=== PATIENT | male | born 2000 | race Caucasian/White ===

== ENCOUNTER 2021-03-12 10:37 | Emergency (ER) | payer OTHER ==
[2021-03-12 10:51] VITALS: BP 137/76; PULSE 88; TEMP 98.6; BMI 22.8
[2021-03-12] MEDS ORDERED: IBUPROFEN 600 MG TABLET (FP) PO ONE ×2 (12:08→12:27)
== END 2021-03-12 12:49 | disposition home or self-care (01) ==
LOC: JERFT 10:37
DX: M25.562 Pain in left knee (principal); V43.52XA Car driver injured in collision with other type car in traffic accident, initial encounter
CPT/HCPCS: 73562-TC-LT-FY; 99283-25